=== PATIENT | female | born 1985 | race Caucasian/White ===

== ENCOUNTER 2017-01-10 21:37 | Emergency (ER) | payer SELFPAY ==
[~2017-01-10] VITALS: Ht 170.2 cm; Wt 64.0 kg
[~2017-01-10 21:37] MED LIST: ALBU6.7H PO; CITA20TA9 PO; CYCL-259 PO; HYDR-3241 PO; NAPR500T3 PO; NORT10CA PO; ZOLP-413 PO
[2017-01-10 21:38] VITALS: BP 122/85
== END 2017-01-10 22:46 | disposition home or self-care (01) ==
LOC: ED 22:40
DX: M77.9 Enthesopathy, unspecified (principal); M54.2 Cervicalgia; G89.29 Other chronic pain; F17.210 Nicotine dependence, cigarettes, uncomplicated
CPT/HCPCS: 29125; 99284

== ENCOUNTER 2017-06-24 17:43 | Emergency (ER) | payer OTHER ==
[~2017-06-24] VITALS: Ht 162.6 cm; Wt 59.0 kg
[~2017-06-24 17:43] MED LIST changes: -NAPR500T3 PO; +NAPR500T4 PO
[2017-06-24] MEDS ORDERED: SODIUM CHLORIDE 0.9% 1,000ML IVBOLUS ONE (18:30)
[2017-06-24 19:13] LABS: BASOPHILS # (AUTO) 0.03 x10^3/uL (0-0.1); BASOPHILS % (AUTO) 0 % (0-1); EOSINOPHILS # (AUTO) 0.04 x10^3/uL (0-0.4); EOSINOPHILS % (AUTO) 1 % (1-7); LYMPHOCYTES # (AUTO) 1.34 x10^3/uL (1-3.4); LYMPHOCYTES % (AUTO) 16 % (22-44); MD NO; MEAN CORPUSCULAR HEMOGLOBIN 31.2 pg (27.0-34.8); MEAN CORPUSCULAR HGB CONC 33.3 g/dL (32.4-35.8); MEAN CORPUSCULAR VOLUME 93.9 fL (80-100); MEAN PLATELET VOLUME 8.1 fL (7.4-10.4); MONOCYTES # (AUTO) 0.33 x10^3/uL (0.2-0.8); MONOCYTES % (AUTO) 4 % (2-9); NEUTROPHILS # (AUTO) 6.62 x10^3/uL (1.8-6.8); NEUTROPHILS % (AUTO) 79 % (42-75); PLATELET COUNT 232 x10^3/uL (130-400); RED BLOOD COUNT 4.31 x10^6/uL (3.82-5.3); RED CELL DISTRIBUTION WIDTH 12.9 % (9.6-15.2)
[2017-06-24 19:23] LABS: ALBUMIN 3.9 g/dL (3.4-5.0); ANION GAP 6 mmol/L (5-15); CALCIUM 8.9 mg/dL (8.5-10.1); CHLORIDE 108 mmol/L (98-107); CREATININE 0.65 mg/dL (0.55-1.02)
[2017-06-24] MEDS ORDERED: KETOROLAC 30 MG/1 ML IM ONE (20:00)
[2017-06-24] MEDS ORDERED: KETOROLAC 30 MG/1 ML ONE (20:45)
[2017-06-24 21:15] VITALS: BP 123/76
== END 2017-06-24 21:17 | disposition home or self-care (01) ==
LOC: ED 19:13
DX: S06.0X0A Concussion without loss of consciousness, initial encounter (principal); S09.90XA Unspecified injury of head, initial encounter; R55 Syncope and collapse; F17.200 Nicotine dependence, unspecified, uncomplicated; G89.29 Other chronic pain; W13.3XXA Fall through floor, initial encounter; Y93.89 Activity, other specified; Y92.89 Other specified places as the place of occurrence of the external cause; Y99.8 Other external cause status
CPT/HCPCS: 36415; 70450; 80048; 82040; 84703; 85025; 93005; 96360; 96361; 96372; 99285; J1885; J7030

== ENCOUNTER 2017-07-05 16:19 | Emergency (ER) | payer BC ==
[~2017-07-05] VITALS: Ht 170.2 cm; Wt 61.0 kg
[2017-07-05 16:22] VITALS: BP 100/64
[2017-07-05 17:01] LABS: RAPID INFLUENZA A Negative (Negative); RAPID INFLUENZA B Negative (Negative)
== END 2017-07-05 18:20 | disposition home or self-care (01) ==
LOC: ED 16:37
DX: B34.9 Viral infection, unspecified (principal); F17.200 Nicotine dependence, unspecified, uncomplicated
CPT/HCPCS: 71046; 87081; 87400; 87880; 99285

== ENCOUNTER 2018-05-11 16:21 | Emergency (ER) | payer BC ==
[~2018-05-11] VITALS: Ht 172.7 cm; Wt 62.0 kg
[~2018-05-11 16:21] MED LIST changes: +NAPR-685 PO; -NAPR500T4 PO
[2018-05-11 16:26] VITALS: BP 110/72
== END 2018-05-11 17:12 | disposition home or self-care (01) ==
LOC: ED 16:48
DX: H92.01 Otalgia, right ear (principal); F32.9 Major depressive disorder, single episode, unspecified; Z98.890 Other specified postprocedural states; Z98.51 Tubal ligation status
CPT/HCPCS: 99281

== ENCOUNTER 2018-07-25 08:42 | Emergency (ER) | payer SELFPAY ==
[~2018-07-25] VITALS: Ht 170.2 cm; Wt 62.8 kg
[2018-07-25 08:45] VITALS: BP 129/91
--- NOTE | 2018-07-25 10:32 | NUR ---
Patient/Caregiver given discharge instructions and they have confirmed that they understand the instructions. Patient ambulatory with steady gait with crutches.
== END 2018-07-25 10:52 | disposition home or self-care (01) ==
LOC: ED 10:24
DX: S83.421A Sprain of lateral collateral ligament of right knee, initial encounter (principal); W19.XXXA Unspecified fall, initial encounter; Y93.89 Activity, other specified; Y92.410 Unspecified street and highway as the place of occurrence of the external cause; Y99.8 Other external cause status
CPT/HCPCS: 99283

== ENCOUNTER 2019-01-10 21:13 | Emergency (ER) | payer MEDICAID ==
[~2019-01-10] VITALS: Ht 170.2 cm; Wt 66.0 kg
[~2019-01-10 21:13] MED LIST changes: -ALBU6.7H PO; +ALBU6.7H8 PO
[2019-01-10 21:17] VITALS: BP 124/67
[2019-01-10] MEDS ORDERED: KETOROLAC 30 MG/1 ML IM ONE (21:30)
--- NOTE | 2019-01-10 21:34 | NUR ---
TAKEN TO RAD
[2019-01-10] MEDS ORDERED: KETOROLAC 30 MG/1 ML ONE (21:37)
--- NOTE | 2019-01-10 21:49 | NUR ---
PT MEDICATED PER MAR FOR PAIN.
[2019-01-10] MEDS ORDERED: NEOSPORIN OINT. PKT 1 PACKET ONE (22:11)
--- NOTE | 2019-01-10 22:18 | NUR ---
WOUNDS CLEANED AND DRESSED. AIR CAST APPLIED. PT DECLINGING CRUTCHES STATES HAS HER OWN
== END 2019-01-10 22:31 | disposition home or self-care (01) ==
LOC: ED 22:03
DX: S93.401A Sprain of unspecified ligament of right ankle, initial encounter (principal); S40.211A Abrasion of right shoulder, initial encounter; S50.311A Abrasion of right elbow, initial encounter; S60.512A Abrasion of left hand, initial encounter; S60.511A Abrasion of right hand, initial encounter; S30.811A Abrasion of abdominal wall, initial encounter; F41.1 Generalized anxiety disorder; F32.9 Major depressive disorder, single episode, unspecified; M54.2 Cervicalgia; G89.29 Other chronic pain; W01.0XXA Fall on same level from slipping, tripping and stumbling without subsequent striking against object, initial encounter; Y93.89 Activity, other specified; Y92.89 Other specified places as the place of occurrence of the external cause; Y99.8 Other external cause status
CPT/HCPCS: 73590; 73610; 73630; 96372; 99283; J1885

== ENCOUNTER 2019-06-30 00:43 | Emergency (ER) | payer MEDICAID ==
[~2019-06-30] VITALS: Ht 170.2 cm; Wt 59.0 kg
[2019-06-30 01:00] VITALS: BP 103/72
[2019-06-30] MEDS ORDERED: KETOROLAC 30 MG/1 ML IM ONE (01:30)
[2019-06-30] MEDS ORDERED: KETOROLAC 30 MG/1 ML ONE (02:03)
== END 2019-06-30 02:24 | disposition home or self-care (01) ==
LOC: ED 01:33
DX: S93.401A Sprain of unspecified ligament of right ankle, initial encounter (principal); F17.210 Nicotine dependence, cigarettes, uncomplicated; W01.0XXA Fall on same level from slipping, tripping and stumbling without subsequent striking against object, initial encounter; Y93.89 Activity, other specified; Y92.009 Unspecified place in unspecified non-institutional (private) residence as the place of occurrence of the external cause; Y99.8 Other external cause status
CPT/HCPCS: 73590; 73610; 96372; 99283; J1885

== ENCOUNTER 2019-10-27 11:19 | Emergency (ER) | payer MEDICAID ==
[~2019-10-27] VITALS: Ht 170.2 cm; Wt 64.2 kg
[2019-10-27 11:25] VITALS: BP 115/2
[2019-10-27] MEDS ORDERED: DEXAMETHASONE 4 MG TABLET ONE (11:47)
[2019-10-27] MEDS ORDERED: DEXAMETHASONE 4 MG TABLET PO ONE (12:00)
== END 2019-10-27 12:15 | disposition home or self-care (01) ==
LOC: ED 12:00
DX: J03.00 Acute streptococcal tonsillitis, unspecified (principal); F17.200 Nicotine dependence, unspecified, uncomplicated
CPT/HCPCS: 99283

== ENCOUNTER 2020-03-01 11:48 | Emergency (ER) | payer MEDICAID ==
[~2020-03-01] VITALS: Ht 170.2 cm; Wt 66.2 kg
[2020-03-01 11:56] VITALS: BP 123/64
[2020-03-01] MEDS ORDERED: DEXAMETHASONE 4 MG TABLET PO ONE (12:30)
[2020-03-01] MEDS ORDERED: DEXAMETHASONE 4 MG TABLET ONE (12:57)
== END 2020-03-01 13:59 | disposition home or self-care (01) ==
LOC: ED 13:11
DX: J02.8 Acute pharyngitis due to other specified organisms (principal); B97.89 Other viral agents as the cause of diseases classified elsewhere; Z88.1 Allergy status to other antibiotic agents; Z88.8 Allergy status to other drugs, medicaments and biological substances
CPT/HCPCS: 70360; 87081; 87880; 99284

== ENCOUNTER 2020-03-03 11:31 | Emergency (ER) | payer MEDICAID ==
[~2020-03-03] VITALS: Ht 170.2 cm; Wt 66.2 kg
[2020-03-03 11:33] VITALS: BP 128/76
== END 2020-03-03 12:13 | disposition home or self-care (01) ==
LOC: ED 12:00
DX: J02.8 Acute pharyngitis due to other specified organisms (principal); H92.01 Otalgia, right ear; B97.89 Other viral agents as the cause of diseases classified elsewhere; F17.200 Nicotine dependence, unspecified, uncomplicated
CPT/HCPCS: 99283

== ENCOUNTER 2020-09-23 18:15 | Emergency (ER) | payer MEDICAID ==
[~2020-09-23] VITALS: Ht 170.2 cm; Wt 71.6 kg
[~2020-09-23 18:15] MED LIST changes: -CYCL-259 PO; +CYCL10TA2 PO
[2020-09-23 20:42] LABS: BASOPHILS % (AUTO) 1 % (0-1); EOSINOPHILS % (AUTO) 2 % (1-7); LYMPHOCYTES % (AUTO) 34 % (22-44); MEAN CORPUSCULAR HEMOGLOBIN 32.3 pg (27.0-34.8); MEAN CORPUSCULAR HGB CONC 34.6 g/dL (32.4-35.8); MEAN PLATELET VOLUME 7.8 fL (7.4-10.4); MONOCYTES % (AUTO) 6 % (2-9); NEUTROPHILS % (AUTO) 57 % (42-75); PLATELET COUNT 287 x10^3/uL (130-400); RED BLOOD COUNT 4.58 x10^6/uL (3.82-5.3); RED CELL DISTRIBUTION WIDTH 12.5 % (9.6-15.2)
[2020-09-23 20:51] LABS: ALBUMIN 4.1 g/dL (3.4-5.0); ANION GAP 5 mmol/L (5-15); CALCIUM 8.8 mg/dL (8.5-10.1); CHLORIDE 106 mmol/L (98-107)
[2020-09-23 20:57] LABS: ALANINE AMINOTRANSFERASE 22 U/L (12-78); ALKALINE PHOSPHATASE 48 U/L (45-117); BILIRUBIN,TOTAL 0.6 mg/dL (0.2-1.0); CREATININE 0.79 mg/dL (0.55-1.02)
--- NOTE | 2020-09-23 21:02 | NUR ---
LUQ PAINS X 8DAYS, DENIES N/V/D. LBM YESTERDAY
--- NOTE | 2020-09-23 21:05 | NUR ---
REPORT TO ROSELINE MARQUEZ
[2020-09-23 21:18] LABS: MICROSCOPIC INDICATED
--- NOTE | 2020-09-23 21:20 | NUR ---
PT TO CT, VSS
[2020-09-23] MEDS ORDERED: MAALOX/HYOSCYAMINE/LIDOCAINE 45 ML BTL ONE (21:25)
[2020-09-23] MEDS ORDERED: MAALOX/HYOSCYAMINE/LIDOCAINE 45 ML BTL PO ONE (21:30)
[2020-09-23 22:11] VITALS: BP 106/62
== END 2020-09-23 22:40 | disposition home or self-care (01) ==
LOC: ED 21:01
DX: K29.00 Acute gastritis without bleeding (principal); R10.12 Left upper quadrant pain; R10.32 Left lower quadrant pain; F17.210 Nicotine dependence, cigarettes, uncomplicated
CPT/HCPCS: 36415; 74022; 80053; 81001; 81025; 83690; 84703; 85025; 87086; 99406